=== PATIENT | female | born 1960 | race Caucasian/White ===

== ENCOUNTER 2020-04-04 10:38 | Emergency (ER) | payer MEDICAID, OTHER ==
[~2020-04-04] VITALS: Ht 167.6 cm; Wt 90.7 kg
[~2020-04-04 10:38] MED LIST: ACET-6134 PO; ETAN50SO SC
[2020-04-04 10:56] VITALS: BP 147/82
--- NOTE | 2020-04-04 11:01 | NUR ---
WAIT AT LOBBY. HANDED ON URINE CUP.
--- NOTE | 2020-04-04 11:16 | NUR ---
PT AMBULATED TO BED 07
--- NOTE | 2020-04-04 11:26 | NUR ---
DR MCKEON [facility]
[2020-04-04 11:48] LABS: BASOPHILS % (AUTO) 0.3 % (0.0-2.0); EOSINOPHILS # (AUTO) 0.1 K/uL (0-0.4); EOSINOPHILS % (AUTO) 1.1 % (0.0-4.0); HEMATOCRIT 39.9 % (36-48); HEMOGLOBIN 12.8 g/dL (12.0-16.0); LYMPHOCYTES # (AUTO) 1.5 K/uL (2.5-16.5); LYMPHOCYTES % (AUTO) 28.2 % (20.5-51.1); MEAN CORPUSCULAR HEMOGLOBIN 26 pg (27-31); MEAN CORPUSCULAR HGB CONC 32 g/dL (33-37); MEAN CORPUSCULAR VOLUME 81.7 fL (80-94); MONOCYTES # (AUTO) 0.5 K/uL (0.8-1.0); MONOCYTES % (AUTO) 9.2 % (1.7-9.3); NEUTROPHILS # (AUTO) 3.3 K/uL (1.8-7.7); NEUTROPHILS % (AUTO) 61.2 % (42.2-75.2); PLATELET COUNT (AUTO) 310 K/uL (140-450); RED BLOOD CELL COUNT(AUTO) 4.88 MIL/uL (4.20-5.40); RED CELL DISTRIBUTION WIDTH 14.6 % (11.6-13.7); WHITE BLOOD COUNT (AUTO) 5.4 K/uL (4.8-10.8)
--- NOTE | 2020-04-04 12:00 | NUR ---
REFERRED FROM CLINIC. C/O GENERALIZED ABDOMINAL PAIN X 2 WEEKS.PT AOX 4 , AFIBRILE , ROUND SOFT ABDOMEN , NONTENDER. DENIES N/V. MED HX: HTN, DEPRESSION
[2020-04-04 12:45] LABS: ANION GAP 12.5 (8-16); CARBON DIOXIDE 27.8 mmol/L (21-32); POTASSIUM 4.3 mmol/L (3.5-5.1)
[2020-04-04 12:46] LABS: CREATININE 0.8 mg/dL (0.6-1.3); TOTAL BILIRUBIN 0.4 mg/dL (0.0-1.0)
[2020-04-04 12:48] LABS: ALBUMIN 3.3 g/dL (3.4-5.0)
--- NOTE | 2020-04-04 13:12 | NUR ---
pt to ct scan via [facility].
--- NOTE | 2020-04-04 13:13 | NUR ---
pt back from ct scan via [facility].
[2020-04-04] MEDS ORDERED: MORPHINE SULFATE 4 MG/ML SYR IVP ONE (14:00)
[2020-04-04] MEDS ORDERED: ONDANSETRON 4 MG/2 ML VIAL IVP ONE (14:00)
[2020-04-04 14:45] VITALS: BP 147/82
--- NOTE | 2020-04-04 14:47 | NUR ---
Patient discharged with v/s stable. Written and verbal after care instructions given and explained regarding abdominal pain. Patient alert, oriented and verbalized understanding of instructions. Ambulatory with steady gait. All questions addressed prior to discharge. ID band removed. Patient advised to follow up with PMD. Rx of norco and zofra given. Patient educated on indication of medication including possible reaction and side effects. Opportunity to ask questions provided and answered.
== END 2020-04-04 14:47 | disposition home or self-care (01) ==
LOC: MED 10:38
DX: R10.9 Unspecified abdominal pain (principal); R11.10 Vomiting, unspecified; R19.7 Diarrhea, unspecified; Z79.899 Other long term (current) drug therapy; Z88.0 Allergy status to penicillin; Z88.8 Allergy status to other drugs, medicaments and biological substances
CPT/HCPCS: 36415; 74177; 80053; 81002; 83690; 85025; 96374; 96375; 99285; J2270; J2405; Q9967

== ENCOUNTER 2020-04-25 13:03 | Emergency (ER) | payer OTHER ==
[~2020-04-25] VITALS: Ht 167.6 cm; Wt 90.7 kg
[2020-04-25 13:09] VITALS: BP 139/77
[2020-04-25 15:28] LABS: BASOPHILS % (AUTO) 0.7 % (0.0-2.0); EOSINOPHILS # (AUTO) 0.1 K/uL (0-0.4); EOSINOPHILS % (AUTO) 0.8 % (0.0-4.0); HEMATOCRIT 40.3 % (36-48); HEMOGLOBIN 12.9 g/dL (12.0-16.0); LYMPHOCYTES # (AUTO) 1.8 K/uL (2.5-16.5); LYMPHOCYTES % (AUTO) 25.6 % (20.5-51.1); MEAN CORPUSCULAR HEMOGLOBIN 26 pg (27-31); MEAN CORPUSCULAR HGB CONC 32 g/dL (33-37); MEAN CORPUSCULAR VOLUME 80.9 fL (80-94); MONOCYTES # (AUTO) 0.5 K/uL (0.8-1.0); MONOCYTES % (AUTO) 6.9 % (1.7-9.3); NEUTROPHILS # (AUTO) 4.7 K/uL (1.8-7.7); PLATELET COUNT (AUTO) 337 K/uL (140-450); RED BLOOD CELL COUNT(AUTO) 4.98 MIL/uL (4.20-5.40); RED CELL DISTRIBUTION WIDTH 14.2 % (11.6-13.7); WHITE BLOOD COUNT (AUTO) 7.2 K/uL (4.8-10.8)
[2020-04-25 15:44] LABS: ALBUMIN 3.3 g/dL (3.4-5.0); ANION GAP 17.7 (8-16); CREATININE 0.8 mg/dL (0.6-1.3); POTASSIUM 3.7 mmol/L (3.5-5.1); TOTAL BILIRUBIN 0.5 mg/dL (0.0-1.0)
[2020-04-25 16:20] VITALS: BP 127/68
== END 2020-04-25 16:21 | disposition home or self-care (01) ==
LOC: MED 13:03
DX: M25.519 Pain in unspecified shoulder (principal); M54.6 Pain in thoracic spine; R07.9 Chest pain, unspecified; I10 Essential (primary) hypertension; F32.9 Major depressive disorder, single episode, unspecified; Z90.710 Acquired absence of both cervix and uterus; Z90.49 Acquired absence of other specified parts of digestive tract; Z98.890 Other specified postprocedural states; Z88.0 Allergy status to penicillin; Z88.8 Allergy status to other drugs, medicaments and biological substances
CPT/HCPCS: 36415; 71045; 80053; 84484; 85025; 99284; Q0092; 93005

== ENCOUNTER 2020-07-11 11:43 | Emergency (ER) | payer OTHER ==
[~2020-07-11] VITALS: Ht 167.6 cm; Wt 95.3 kg
[2020-07-11 11:46] VITALS: BP 116/71
--- NOTE | 2020-07-11 12:04 | NUR ---
59 Y/O FEMALE PT C/O PERIUMBILIBAL ABDOMINAL PAIN WITH NAUSEA AND DIAPHORESIS FOR ONE WEEK; WORSENING FOR THE PAST 3 DAYS. DENIES DIARRHEA OR BLOOD IN STOOL. NO VOMITING NOTED AT THIS TIME. ABD IS TENDER, NON DISTENDED AND SOFT. PMH: HTN MEDS: LOSARTAN, FLUOXETINE
[2020-07-11] MEDS ORDERED: MORPHINE SULFATE 4 MG/ML SYR IVP ONE (12:15)
[2020-07-11] MEDS ORDERED: ONDANSETRON 4 MG/2 ML VIAL ONE (12:27)
--- NOTE | 2020-07-11 12:33 | NUR ---
PT TAKEN TO CT VIA WHEELCHAIR
[2020-07-11] MEDS ORDERED: ONDANSETRON 4 MG/2 ML VIAL IVP ONE (12:35)
[2020-07-11 12:58] LABS: BASOPHILS % (AUTO) 0.5 % (0.0-2.0); EOSINOPHILS % (AUTO) 0.4 % (0.0-4.0); HEMATOCRIT 42.5 % (36-48); HEMOGLOBIN 13.9 g/dL (12.0-16.0); LYMPHOCYTES # (AUTO) 1.7 K/uL (2.5-16.5); LYMPHOCYTES % (AUTO) 24.8 % (20.5-51.1); MEAN CORPUSCULAR HEMOGLOBIN 26 pg (27-31); MEAN CORPUSCULAR HGB CONC 33 g/dL (33-37); MEAN CORPUSCULAR VOLUME 80.5 fL (80-94); MONOCYTES # (AUTO) 0.5 K/uL (0.8-1.0); MONOCYTES % (AUTO) 7.1 % (1.7-9.3); NEUTROPHILS # (AUTO) 4.6 K/uL (1.8-7.7); NEUTROPHILS % (AUTO) 67.2 % (42.2-75.2); PLATELET COUNT (AUTO) 335 K/uL (140-450); RED BLOOD CELL COUNT(AUTO) 5.28 MIL/uL (4.20-5.40); RED CELL DISTRIBUTION WIDTH 14.5 % (11.6-13.7); WHITE BLOOD COUNT (AUTO) 6.8 K/uL (4.8-10.8)
[2020-07-11 13:05] LABS: APPEARANCE,URINE HAZY (CLEAR); BILIRUBIN,URINE NEGATIVE (NEGATIVE); BLOOD, URINE NEGATIVE (NEGATIVE); COLOR,URINE YELLOW (YELLOW); LEUKOCYTE ESTERASE ,URINE NEGATIVE (NEGATIVE); NITRITE, URINE NEGATIVE (NEGATIVE); PH,URINE 8.5 (5.0-9.0); UGLUCOSE NEGATIVE (NEGATIVE)
[2020-07-11 13:18] LABS: ALBUMIN 3.9 g/dL (3.4-5.0); ANION GAP 14.2 (8-16); CARBON DIOXIDE 26.8 mmol/L (21-32); CREATININE 0.9 mg/dL (0.6-1.3); TOTAL BILIRUBIN 0.6 mg/dL (0.0-1.0)
[2020-07-11 14:18] VITALS: BP 121/78
--- NOTE | 2020-07-11 14:18 | NUR ---
Patient discharged with v/s stable. Written and verbal after care instructions given and explained. Patient alert, oriented and verbalized understanding of instructions. Ambulatory with steady gait. All questions addressed prior to discharge. ID band removed. Patient advised to follow up with PMD. Rx of Bentyl and Flexeril given. Patient educated on indication of medication including possible reaction and side effects. Opportunity to ask questions provided and answered.
== END 2020-07-11 14:18 | disposition home or self-care (01) ==
LOC: MED 11:43
DX: R10.9 Unspecified abdominal pain (principal); I10 Essential (primary) hypertension; Z88.0 Allergy status to penicillin; Z88.6 Allergy status to analgesic agent; Z79.899 Other long term (current) drug therapy
CPT/HCPCS: 36415; 74176; 80053; 81003; 83690; 85025; 96374; 96375; 99284; J2270; J2405

== ENCOUNTER 2020-10-16 16:37 | Emergency (ER) | payer OTHER ==
[~2020-10-16] VITALS: Ht 167.6 cm; Wt 85.7 kg
[2020-10-16 16:51] VITALS: BP 141/79
[2020-10-16] MEDS ORDERED: CLOPIDOGREL 75 MG TAB PO ONE (17:00)
[2020-10-16] MEDS ORDERED: NACL 0.9% 500 ML IV ONE (17:00)
[2020-10-16] MEDS ORDERED: MORPHINE SULFATE 2 MG/ML SYR IVP ONE (17:00)
[2020-10-16] MEDS ORDERED: ONDANSETRON 4 MG/2 ML VIAL ONE (17:18)
[2020-10-16 17:22] LABS: BASOPHILS % (AUTO) 0.4 % (0.0-2.0); EOSINOPHILS % (AUTO) 0.2 % (0.0-4.0); HEMATOCRIT 38.5 % (36-48); HEMOGLOBIN 12.5 g/dL (12.0-16.0); LYMPHOCYTES # (AUTO) 0.8 K/uL (2.5-16.5); MEAN CORPUSCULAR HEMOGLOBIN 26 pg (27-31); MEAN CORPUSCULAR HGB CONC 33 g/dL (33-37); MONOCYTES # (AUTO) 0.3 K/uL (0.8-1.0); MONOCYTES % (AUTO) 3.6 % (1.7-9.3); NEUTROPHILS % (AUTO) 86.8 % (42.2-75.2); PLATELET COUNT (AUTO) 329 K/uL (140-450); RED BLOOD CELL COUNT(AUTO) 4.87 MIL/uL (4.20-5.40); RED CELL DISTRIBUTION WIDTH 14.2 % (11.6-13.7); WHITE BLOOD COUNT (AUTO) 9.2 K/uL (4.8-10.8)
[2020-10-16] MEDS ORDERED: ONDANSETRON 4 MG/2 ML VIAL IVP ONE (17:30)
[2020-10-16 17:39] LABS: ALBUMIN 3.4 g/dL (3.4-5.0); ANION GAP 12.2 (8-16); CARBON DIOXIDE 27.5 mmol/L (21-32); CREATININE 0.9 mg/dL (0.6-1.3); POTASSIUM 3.7 mmol/L (3.5-5.1); TOTAL BILIRUBIN 0.4 mg/dL (0.0-1.0)
[2020-10-16 18:30] VITALS: BP 142/57
--- NOTE | 2020-10-16 18:47 | NUR ---
Patient discharged with v/s stable. Written and verbal after care instructions given and explained. Patient alert, oriented and verbalized understanding of instructions. Ambulatory with steady gait. All questions addressed prior to discharge. ID band removed. Patient advised to follow up with PMD. New Rx given. Patient educated on indication of medication including possible reaction and side effects. Opportunity to ask questions provided and answered. IV REMOVED BEFORE DISCHARGE. PT IN AGREEMENT WITH PLAN OF CARE.
== END 2020-10-16 18:34 | disposition home or self-care (01) ==
LOC: MED 16:37
DX: R07.89 Other chest pain (principal); J45.909 Unspecified asthma, uncomplicated; I10 Essential (primary) hypertension; Z88.0 Allergy status to penicillin; Z79.899 Other long term (current) drug therapy
CPT/HCPCS: 36415; 71045; 80053; 84484; 85025; 93005; 96374; 96375; 99285; J2270; J2405; J7030

== ENCOUNTER 2020-12-26 08:32 | Emergency (ER) | payer OTHER ==
[~2020-12-26] VITALS: Ht 167.6 cm; Wt 90.7 kg
[2020-12-26 08:39] VITALS: BP 109/69
--- NOTE | 2020-12-26 08:43 | NUR ---
Patient ambulated to bed 7. RN evaluating the patient at bedside.
--- NOTE | 2020-12-26 08:50 | NUR ---
Dr. Benites is evaluating patient at bedside.
--- NOTE | 2020-12-26 08:55 | NUR ---
Note undone in EDM - 12/26/20 at 0903 by [facility] 60 y/o F coming in from home with c/c chest pain. Patient also states swelling to bilateral upper and lower extremity and left hand. Patient states chest pain 10/10, sharp/intermittent, non-radiating. Patient ofelia fever, chills, N/V. Patient states shortness of breath. female with pain in arms and legs for two days. Pt reports chest pain. Pt describes sharp intermittent 10/10 in bilateral arms and legs and her chest. Pt took Tylenol without improvement in pain. Pt denies fever, chills, nausea or vomiting. Pt with SOB. Pt without cough. Pt reports swelling in arms and legs. EKG performed at bedside showing Sinus tachycardia @ HR 109; Dr. Benites made aware of results. shelter monitor in place. Respirations even/unlabored. Bed locked in lowest position, side rails x 1, call light in reach. PMH: Asthma, HTN Meds: Albuterol, Nitrostat Sx: Hysterectomy, hernia repair
--- NOTE | 2020-12-26 08:55 | NUR ---
60 y/o F coming in from home with c/c chest pain. Patient also states swelling to bilateral upper and lower extremity and left hand. Patient states chest pain 10/10, sharp/intermittent, non-radiating. Patient states associated shortness of breath. Patient states she took Tylenol with no relief to pain. EKG performed at bedside showing Sinus tachycardia @ HR 109; Dr. Benites made aware of results. monitoring and evaluation advisor in place. Respirations even/unlabored. Bed locked in lowest position, side rails x 1, call light in reach. PMH: Asthma, HTN Meds: Albuterol, Nitrostat Sx: Hysterectomy, hernia repair Addendum: 12/26/20 at 0909 by [facility] 60 y/o F coming in from home with c/c chest pain. Patient also states swelling to bilateral upper and lower extremity and left hand. Patient states chest pain 10/10, sharp/intermittent, non-radiating. Patient states associated shortness of breath. Patient states she took Tylenol with no relief to pain. Patient denies N/V/D, fever, chills, cough, fever, headache, dizziness, chills. EKG performed at bedside showing Sinus tachycardia @ HR 109; Dr. Benites made aware of results. monitoring and evaluation advisor in place. Respirations tachypneic at 29. Bed locked in lowest position, side rails x 1, call light in reach. PMH: Asthma, HTN Meds: Albuterol, Nitrostat Sx: Hysterectomy, hernia repair
[2020-12-26] MEDS ORDERED: MORPHINE SULFATE 4 MG/ML SYR IM ONE (09:00)
[2020-12-26] MEDS ORDERED: ONDANSETRON 4 MG ODT PO ONE (09:15)
--- NOTE | 2020-12-26 09:35 | NUR ---
Dr. Benites is reevaluating the patient at bedside.
[2020-12-26] MEDS ORDERED: ACET-8386 PO (09:54)
[2020-12-26] MEDS ORDERED: ONDA8TAB87 PO (09:54)
[2020-12-26 10:02] VITALS: BP 120/73
--- NOTE | 2020-12-26 10:02 | NUR ---
Patient discharged with v/s stable. Written and verbal after care instructions given and explained. Patient alert, oriented and verbalized understanding of instructions. Ambulatory with steady gait. All questions addressed prior to discharge. ID band removed. Patient advised to follow up with PMD. Rx of Hydrocodone/Acetaminophen, Ondansetron Hcl given. Patient educated on indication of medication including possible reaction and side effects. Opportunity to ask questions provided and answered.
== END 2020-12-26 10:02 | disposition home or self-care (01) ==
LOC: MED 08:32
DX: R07.89 Other chest pain (principal); M79.601 Pain in right arm; M79.602 Pain in left arm; M79.604 Pain in right leg; M79.605 Pain in left leg; J45.909 Unspecified asthma, uncomplicated; I10 Essential (primary) hypertension; Z79.899 Other long term (current) drug therapy; Z98.890 Other specified postprocedural states; Z90.710 Acquired absence of both cervix and uterus; Z88.0 Allergy status to penicillin; Z88.6 Allergy status to analgesic agent
CPT/HCPCS: 93005; 96372; 99283; J2270; Q0162

== ENCOUNTER 2021-03-06 23:02 | Emergency (ER) | payer OTHER ==
[~2021-03-06] VITALS: Ht 165.1 cm; Wt 93.9 kg
[~2021-03-06 23:02] MED LIST changes: +ACET-10509 PO; -ACET-6134 PO; +ACET-8386 PO; +ONDA8TAB87 PO
[2021-03-06 23:06] VITALS: BP 138/82
--- NOTE | 2021-03-06 23:13 | NUR ---
PT TAKEN TO BED 5
--- NOTE | 2021-03-06 23:42 | NUR ---
Dr. Sanchez examining patient.
[2021-03-06] MEDS ORDERED: NACL 0.9% 1,000 ML IV ONE (23:45)
[2021-03-06] MEDS ORDERED: KETOROLAC 30 MG/ML VIAL IVP ONE (23:45)
--- NOTE | 2021-03-06 23:48 | NUR ---
Urine sample collected and handed to Maggie from lab.
[2021-03-07 00:06] LABS: APPEARANCE,URINE CLEAR (CLEAR); BILIRUBIN,URINE 1+ (NEGATIVE); BLOOD, URINE TRACE-I (NEGATIVE); COLOR,URINE YELLOW (YELLOW); LEUKOCYTE ESTERASE ,URINE NEGATIVE (NEGATIVE); NITRITE, URINE NEGATIVE (NEGATIVE); PH,URINE 6.5 (5.0-9.0); UGLUCOSE NEGATIVE (NEGATIVE)
[2021-03-07 00:16] LABS: WBC,URINE 0-5 /HPF (0-5)
[2021-03-07 00:28] LABS: BASOPHILS # (AUTO) 0.1 K/uL (0.00-0.22); BASOPHILS % (AUTO) 0.4 % (0.0-2.0); CARBON DIOXIDE 25.1 mmol/L (21-32); CREATININE 0.9 mg/dL (0.6-1.3); EOSINOPHILS # (AUTO) 0.1 K/uL (0-0.4); EOSINOPHILS % (AUTO) 0.5 % (0.0-4.0); HEMATOCRIT 39.1 % (36-48); HEMOGLOBIN 12.8 g/dL (12.0-16.0); LYMPHOCYTES # (AUTO) 1.6 K/uL (2.5-16.5); LYMPHOCYTES % (AUTO) 9.9 % (20.5-51.1); MEAN CORPUSCULAR HEMOGLOBIN 26 pg (27-31); MEAN CORPUSCULAR HGB CONC 33 g/dL (33-37); MONOCYTES # (AUTO) 0.6 K/uL (0.8-1.0); MONOCYTES % (AUTO) 3.5 % (1.7-9.3); NEUTROPHILS # (AUTO) 14.1 K/uL (1.8-7.7); NEUTROPHILS % (AUTO) 85.7 % (42.2-75.2); PLATELET COUNT (AUTO) 362 K/uL (140-450); POTASSIUM 4.1 mmol/L (3.5-5.1); RED BLOOD CELL COUNT(AUTO) 5.02 MIL/uL (4.20-5.40); RED CELL DISTRIBUTION WIDTH 15.1 % (11.6-13.7); WHITE BLOOD COUNT (AUTO) 16.5 K/uL (4.8-10.8)
[2021-03-07 00:35] LABS: ALBUMIN 3.3 g/dL (3.4-5.0); TOTAL BILIRUBIN 0.7 mg/dL (0.0-1.0)
[2021-03-07] MEDS ORDERED: FAMOTIDINE 20 MG/2 ML VIAL IVP ONE (01:40)
[2021-03-07 03:09] VITALS: BP 139/71
[2021-03-07] MEDS ORDERED: FAMO-90 PO (03:50)
--- NOTE | 2021-03-07 05:17 | NUR ---
See patient's paper chart for D/C information.
== END 2021-03-07 04:03 | disposition home or self-care (01) ==
LOC: MED 23:02
DX: K29.70 Gastritis, unspecified, without bleeding (principal); J45.909 Unspecified asthma, uncomplicated; I10 Essential (primary) hypertension; Z88.0 Allergy status to penicillin; Z88.6 Allergy status to analgesic agent; Z90.49 Acquired absence of other specified parts of digestive tract; Z98.890 Other specified postprocedural states; Z79.899 Other long term (current) drug therapy
CPT/HCPCS: 36415; 74176; 80053; 81001; 85025; 87086; 96361; 96374; 96375; 99284; J1885; J3490; J7030

== ENCOUNTER 2021-07-04 06:40 | Day surgery (SDC) | payer OTHER, SELFPAY ==
[~2021-07-04] VITALS: Ht 167.6 cm; Wt 81.6 kg
[~2021-07-04 06:40] MED LIST changes: +FAMO-90 PO
[2021-07-04] MEDS ORDERED: MIDAZOLAM 5 MG/5 ML VIAL ONE (08:03)
[2021-07-04] MEDS ORDERED: fentaNYL citrate 0.05 MG/ML VIAL ONE (08:03)
[2021-07-04] MEDS ORDERED: diphenhydrAMINE 50 MG/ML VIAL ONE (08:03)
[2021-07-04] MEDS ORDERED: LIDOCAINE 2% 100 MG/5 ML UJET TP ONE (08:04)
[2021-07-04] MEDS ORDERED: MIDAZOLAM 2 MG/2 ML VIAL IVP ONE (14:10)
[2021-07-04] MEDS ORDERED: fentaNYL citrate 0.05 MG/ML VIAL IVP ONE (14:10)
== END 2021-07-04 09:27 | disposition home or self-care (01) ==
LOC: MMU 06:40 → MDS 06:40
PROVIDERS: ATTEND Internal Medicine Gastroenterology
DX: K62.5 Hemorrhage of anus and rectum (principal); K57.30 Diverticulosis of large intestine without perforation or abscess without bleeding; K59.00 Constipation, unspecified; I10 Essential (primary) hypertension; Z88.0 Allergy status to penicillin; Z79.82 Long term (current) use of aspirin; Z79.899 Other long term (current) drug therapy; Z90.49 Acquired absence of other specified parts of digestive tract; Z20.822 Contact with and (suspected) exposure to COVID-19
CPT/HCPCS: 45378; 87426; J2250; J3010; J1200

== ENCOUNTER 2022-01-14 10:23 | Emergency (ER) | payer OTHER ==
[~2022-01-14] VITALS: Ht 167.6 cm; Wt 87.1 kg
[2022-01-14 10:31] VITALS: BP 145/93
--- NOTE | 2022-01-14 11:00 | NUR ---
61 Y/O FEMALE BIB SELF C/P R/L KNEE PAIN X 4 DAYS. PAIN CURRENTLY IS CONSTANT RATED 6/10. PAIN IS NON-RADIATING. PT DENIES STRAUMA. PT DENIES ALLEVIATING FACTORS. PT DENIES CHEST PAIN, SOB, FEVER, CHILLS. PT DENIES N/V/D. PT IS ALERT AND ORIENTED X 4. BED IN LOWET POSITION. BED RAIL X1. PMH: ASTHMA, HLD, HTN ALLERGY: PENICILLIN MED: IBUPROFEN
[2022-01-14] MEDS ORDERED: KETOROLAC 30 MG/ML VIAL IM ONE (11:50)
--- NOTE | 2022-01-14 11:57 | NUR ---
US AT PT BEDSIDE
--- NOTE | 2022-01-14 12:48 | NUR ---
RAD AT BEDSIDE
[2022-01-14] MEDS ORDERED: NAPR-54 PO (13:51)
[2022-01-14 14:25] VITALS: BP 145/93
== END 2022-01-14 14:25 | disposition home or self-care (01) ==
LOC: MED 10:23
DX: M25.561 Pain in right knee (principal); M25.562 Pain in left knee; J45.909 Unspecified asthma, uncomplicated; I10 Essential (primary) hypertension; E78.5 Hyperlipidemia, unspecified; Z79.899 Other long term (current) drug therapy; Z90.49 Acquired absence of other specified parts of digestive tract; Z98.890 Other specified postprocedural states; Z88.0 Allergy status to penicillin
CPT/HCPCS: 73560; 73562; 93971; 96372; 99284; J1885; Q0092

== ENCOUNTER 2022-02-19 08:22 | Observation (INO) | payer OTHER ==
[~2022-02-19] VITALS: Ht 167.6 cm; Wt 85.9 kg
[~2022-02-19 08:22] MED LIST changes: +NAPR-54 PO
[2022-02-19 08:26] VITALS: BP 106/70
[2022-02-19] MEDS ORDERED: KETOROLAC 30 MG/ML VIAL IVP ONE (09:00)
[2022-02-19] MEDS ORDERED: ONDANSETRON 4 MG/2 ML VIAL IVP ONE (09:05)
[2022-02-19] MEDS ORDERED: ONDANSETRON 4 MG/2 ML VIAL ONE (09:06)
[2022-02-19 09:08] LABS: BASOPHILS # (AUTO) 0.1 K/uL (0.00-0.22); BASOPHILS % (AUTO) 0.6 % (0.0-2.0); EOSINOPHILS % (AUTO) 0.1 % (0.0-4.0); HEMATOCRIT 36.8 % (36-48); LYMPHOCYTES # (AUTO) 1.6 K/uL (2.5-16.5); LYMPHOCYTES % (AUTO) 19.1 % (20.5-51.1); MEAN CORPUSCULAR HEMOGLOBIN 25 pg (27-31); MEAN CORPUSCULAR HGB CONC 33 g/dL (33-37); MEAN CORPUSCULAR VOLUME 75.6 fL (80-94); MONOCYTES # (AUTO) 0.7 K/uL (0.8-1.0); MONOCYTES % (AUTO) 7.9 % (1.7-9.3); NEUTROPHILS # (AUTO) 6.2 K/uL (1.8-7.7); NEUTROPHILS % (AUTO) 72.3 % (42.2-75.2); PLATELET COUNT (AUTO) 327 K/uL (140-450); RED BLOOD CELL COUNT(AUTO) 4.87 MIL/uL (4.20-5.40); RED CELL DISTRIBUTION WIDTH 15.3 % (11.6-13.7); WHITE BLOOD COUNT (AUTO) 8.6 K/uL (4.8-10.8)
[2022-02-19 09:26] LABS: ALBUMIN 3.2 g/dL (3.4-5.0); CARBON DIOXIDE 24.8 mmol/L (21-32); CREATININE 0.9 mg/dL (0.6-1.3); POTASSIUM 3.8 mmol/L (3.5-5.1); TOTAL BILIRUBIN 0.8 mg/dL (0.0-1.0)
[2022-02-19] MEDS ORDERED: ALBU0.0912 INH (10:28)
[2022-02-19] MEDS ORDERED: FLUO10TA4 PO (10:28)
[2022-02-19] MEDS ORDERED: [UNRECOGNIZED DRUG - CODE] SL (10:28)
[2022-02-19 13:11] VITALS: BP 136/58
[2022-02-19 17:35] VITALS: BP 126/66
[2022-02-19 20:00] VITALS: BP 130/64
[2022-02-19] MEDS: MORPHINE SULFATE 2 MG/ML SYR IVP PRN (21:25)
[2022-02-19] MEDS: ONDANSETRON 4 MG/2 ML VIAL IVP PRN (21:33)
[2022-02-20] VITALS: BP 118/61
[2022-02-20] MEDS: ACETAMINOPHEN 325 MG TAB PO PRN ×2 (00:24→15:48)
[2022-02-20 04:00] VITALS: BP 134/71
[2022-02-20 07:12] LABS: BASOPHILS % (AUTO) 0.4 % (0.0-2.0); EOSINOPHILS # (AUTO) 0.1 K/uL (0-0.4); EOSINOPHILS % (AUTO) 1.1 % (0.0-4.0); HEMATOCRIT 34.8 % (36-48); HEMOGLOBIN 11.4 g/dL (12.0-16.0); LYMPHOCYTES # (AUTO) 2.2 K/uL (2.5-16.5); LYMPHOCYTES % (AUTO) 28.5 % (20.5-51.1); MEAN CORPUSCULAR HEMOGLOBIN 25 pg (27-31); MEAN CORPUSCULAR HGB CONC 33 g/dL (33-37); MEAN CORPUSCULAR VOLUME 75.6 fL (80-94); MONOCYTES # (AUTO) 0.8 K/uL (0.8-1.0); MONOCYTES % (AUTO) 10.3 % (1.7-9.3); NEUTROPHILS # (AUTO) 4.6 K/uL (1.8-7.7); NEUTROPHILS % (AUTO) 59.7 % (42.2-75.2); PLATELET COUNT (AUTO) 307 K/uL (140-450); RED BLOOD CELL COUNT(AUTO) 4.61 MIL/uL (4.20-5.40); RED CELL DISTRIBUTION WIDTH 15.1 % (11.6-13.7); WHITE BLOOD COUNT (AUTO) 7.7 K/uL (4.8-10.8)
[2022-02-20 07:17] LABS: ALBUMIN 2.8 g/dL (3.4-5.0); CARBON DIOXIDE 30.3 mmol/L (21-32); CREATININE 0.8 mg/dL (0.6-1.3); MAGNESIUM 2.2 mg/dL (1.8-2.4); PHOSPHORUS 3.8 mg/dL (2.5-4.9); POTASSIUM 4.3 mmol/L (3.5-5.1); TOTAL BILIRUBIN 0.5 mg/dL (0.0-1.0)
[2022-02-20 08:00] VITALS: BP 117/68
[2022-02-20] MEDS: ONDANSETRON 4 MG/2 ML VIAL IVP PRN (10:03)
[2022-02-20] MEDS: MORPHINE SULFATE 2 MG/ML SYR IVP PRN (10:04)
[2022-02-20] MEDS ORDERED: [UNRECOGNIZED DRUG - CODE] PO (11:18)
[2022-02-20] MEDS ORDERED: MONT10TA35 PO (11:21)
[2022-02-20] MEDS ORDERED: ATOR20TA PO (11:21)
[2022-02-20] MEDS ORDERED: PRIM250T70 PO (11:21)
[2022-02-20] MEDS ORDERED: DIPH50CA69 PO (11:33)
[2022-02-20 12:00] VITALS: BP 133/76
[2022-02-20] MEDS ORDERED: NAPROXEN 500 MG TAB PO PRN (12:15)
[2022-02-20 15:29] VITALS: BP 133/76
[2022-02-20] MEDS ORDERED: PRIMIDONE 50 MG TAB PO SCH (21:00)
[2022-02-20] MEDS ORDERED: PRIMIDONE 50 MG PO SCH (21:00)
[2022-02-21] MEDS ORDERED: MONTELUKAST SODIUM 10 MG TAB PO SCH (09:00)
[2022-02-21] MEDS ORDERED: DILTIAZEM 300 MG PO SCH (09:00)
[2022-02-21] MEDS ORDERED: DILTIAZEM HCL PO SCH (09:00)
[2022-02-21] MEDS ORDERED: FAMOTIDINE 20 MG TAB PO SCH (09:00)
[2022-02-21] MEDS ORDERED: ATORVASTATIN 20 MG TAB PO SCH (09:00)
== END 2022-02-20 16:35 | disposition home or self-care (01) ==
LOC: MED 08:22 → MMU 12:08 → MTU 12:34
PROVIDERS: ADMIT Hospitalist; ATTEND Hospitalist
DX: R07.89 Other chest pain (principal); Z20.822 Contact with and (suspected) exposure to COVID-19; I10 Essential (primary) hypertension; E78.5 Hyperlipidemia, unspecified; J45.909 Unspecified asthma, uncomplicated; Z88.0 Allergy status to penicillin; Z79.899 Other long term (current) drug therapy; Z90.710 Acquired absence of both cervix and uterus
CPT/HCPCS: 36415; 71045; 80053; 83735; 83880; 84100; 84484; 85025; 87426; 93005; 96374; 96375; 96376; 99285; C8929; G0378; J1885; J2270; J2405

== ENCOUNTER 2022-03-06 08:02 | Day surgery (SDC) | payer OTHER ==
[~2022-03-06] VITALS: Ht 152.4 cm; Wt 81.6 kg
[~2022-03-06 08:02] MED LIST changes: +ALBU0.0912 INH; +ATOR20TA PO; +DIPH50CA69 PO; +MONT10TA35 PO; +PRIM250T70 PO; +[UNRECOGNIZED DRUG - CODE] PO; +[UNRECOGNIZED DRUG - CODE] SL
[2022-03-06] MEDS ORDERED: diphenhydrAMINE 50 MG/ML VIAL ONE (09:21)
[2022-03-06] MEDS ORDERED: MIDAZOLAM 5 MG/5 ML VIAL ONE (09:21)
[2022-03-06] MEDS ORDERED: fentaNYL citrate 0.05 MG/ML VIAL ONE (09:21)
[2022-03-06] MEDS ORDERED: LIDOCAINE 2% 100 MG/5 ML UJET TP ONE ×2 (09:22→09:30)
[2022-03-06] MEDS ORDERED: MIDAZOLAM 2 MG/2 ML VIAL IVP ONE (15:15)
[2022-03-06] MEDS ORDERED: diphenhydrAMINE 50 MG/ML VIAL IVP ONE (15:15)
[2022-03-06] MEDS ORDERED: fentaNYL citrate 0.05 MG/ML VIAL IVP ONE (15:15)
== END 2022-03-06 12:02 | disposition home or self-care (01) ==
LOC: MOR 08:02 → MMU 08:03 → MOR 12:02
PROVIDERS: ATTEND Internal Medicine Gastroenterology
DX: Z09 Encounter for follow-up examination after completed treatment for conditions other than malignant neoplasm (principal); K57.30 Diverticulosis of large intestine without perforation or abscess without bleeding; K21.9 Gastro-esophageal reflux disease without esophagitis; K59.00 Constipation, unspecified; E78.5 Hyperlipidemia, unspecified; J45.909 Unspecified asthma, uncomplicated; Z86.010 Personal history of colon polyps; Z90.710 Acquired absence of both cervix and uterus; Z90.49 Acquired absence of other specified parts of digestive tract; Z88.0 Allergy status to penicillin; Z79.82 Long term (current) use of aspirin; Z79.899 Other long term (current) drug therapy; Z20.822 Contact with and (suspected) exposure to COVID-19
CPT/HCPCS: 45378; 87426; J1200; J2250; J3010

== ENCOUNTER 2022-05-01 06:34 | Day surgery (SDC) | payer OTHER ==
[~2022-05-01] VITALS: Ht 167.6 cm; Wt 81.6 kg
[~2022-05-01 06:34] MED LIST changes: -ETAN50SO SC; +ETAN50SY SC
[2022-05-01] MEDS ORDERED: fentaNYL citrate 0.05 MG/ML VIAL ONE (07:31)
[2022-05-01] MEDS ORDERED: MIDAZOLAM 5 MG/5 ML VIAL ONE (07:31)
[2022-05-01] MEDS ORDERED: diphenhydrAMINE 50 MG/ML VIAL ONE (07:31)
[2022-05-01] MEDS ORDERED: MIDAZOLAM 2 MG/2 ML VIAL IVP ONE (12:30)
[2022-05-01] MEDS ORDERED: fentaNYL citrate 0.05 MG/ML VIAL IVP ONE (12:30)
== END 2022-05-01 09:25 | disposition home or self-care (01) ==
LOC: MDS 06:34 → MMU 06:36 → MDS 09:25
PROVIDERS: ATTEND Internal Medicine Gastroenterology
DX: R10.13 Epigastric pain (principal); K29.50 Unspecified chronic gastritis without bleeding; K31.7 Polyp of stomach and duodenum; J45.909 Unspecified asthma, uncomplicated; I10 Essential (primary) hypertension; Z86.010 Personal history of colon polyps; Z20.822 Contact with and (suspected) exposure to COVID-19; Z88.0 Allergy status to penicillin; Z79.82 Long term (current) use of aspirin; Z79.899 Other long term (current) drug therapy; Z79.1 Long term (current) use of non-steroidal anti-inflammatories (NSAID); Z90.49 Acquired absence of other specified parts of digestive tract
CPT/HCPCS: 43239; 43251; 87426; 88305; 88312; 88313; 88342; J2250; J3010; J1200

== ENCOUNTER 2022-06-13 14:21 | Emergency (ER) | payer OTHER ==
[~2022-06-13] VITALS: Ht 167.6 cm; Wt 90.7 kg
[2022-06-13 14:40] VITALS: BP 127/52
--- NOTE | 2022-06-13 14:45 | NUR ---
PT AMB TO BED 9.
[2022-06-13] MEDS ORDERED: TETRACAINE HCL/PF 0.5% OPTH 4 ML BTL OP ONE (15:00)
[2022-06-13] MEDS ORDERED: FLUORESCEIN OPTH STRIP 1 MG OP ONE (15:00)
--- NOTE | 2022-06-13 15:19 | NUR ---
61 y/o female, referred from urgent care, pt is c/o left conjectival infection with bl eye pain for 3 days. pt denies any trauma to face or eyes. skin is pink/warm/dry. a&o x4, [place] speaking, with even and steady gait. lungs clear bl, heart rate even and regular. pt denies any fever, cp, sob, or cough at this time. pt states pain is 9/10 at this time. patient positioned for comfort. hob elevated. bed down. ermd made aware of pt. pmh: prediabetes, htn allergy: penicillin
[2022-06-13] MEDS ORDERED: TOMOMETER 1 DEV DEV MC ONE (15:25)
[2022-06-13] MEDS ORDERED: ERYT5OIN51 OP (15:34)
[2022-06-13 17:06] VITALS: BP 127/52
--- NOTE | 2022-06-13 17:07 | NUR ---
copy of work note and urgent care slip given
--- NOTE | 2022-06-13 17:07 | NUR ---
Patient discharged with v/s stable. Written and verbal after care instructions given and explained. Patient alert, oriented and verbalized understanding of instructions. Ambulatory with steady gait. All questions addressed prior to discharge. ID band removed. Patient advised to follow up with PMD. Rx of erythromycin base (script) given. Patient educated on indication of medication including possible reaction and side effects. Opportunity to ask questions provided and answered.
== END 2022-06-13 17:07 | disposition home or self-care (01) ==
LOC: MED 14:21
DX: H10.89 Other conjunctivitis (principal); B96.89 Other specified bacterial agents as the cause of diseases classified elsewhere; H53.8 Other visual disturbances; J45.909 Unspecified asthma, uncomplicated; I10 Essential (primary) hypertension; Z98.49 Cataract extraction status, unspecified eye; Z79.2 Long term (current) use of antibiotics; Z88.0 Allergy status to penicillin
CPT/HCPCS: 99283

== ENCOUNTER 2022-10-21 10:03 | Emergency (ER) | payer OTHER ==
[~2022-10-21] VITALS: Ht 167.6 cm; Wt 91.2 kg
[~2022-10-21 10:03] MED LIST changes: -ACET-10509 PO; -ACET-8386 PO; -ALBU0.0912 INH; -ATOR20TA PO; -DIPH50CA69 PO; +ERYT5OIN51 OP; -ETAN50SY SC; -FAMO-90 PO; -MONT10TA35 PO; -NAPR-54 PO; -ONDA8TAB87 PO; -PRIM250T70 PO; -[UNRECOGNIZED DRUG - CODE] PO; -[UNRECOGNIZED DRUG - CODE] SL
[2022-10-21 10:10] VITALS: BP 116/68
[2022-10-21] MEDS ORDERED: KETOROLAC 30 MG/ML VIAL IM ONE (11:05)
[2022-10-21] MEDS ORDERED: IBUP-2213 PO (11:27)
[2022-10-21] MEDS ORDERED: LID5T TP (11:27)
[2022-10-21] MEDS ORDERED: CYCL-711 PO (11:27)
--- NOTE | 2022-10-21 11:42 | NUR ---
URINE WALKED TO LAB AND HANDED TO BECCA CHEUNG TECH
--- NOTE | 2022-10-21 11:42 | NUR ---
62 Y/O FEMALE BIB SELF C/O UPPER BACK PAIN X3 DAYS, DENIES ANY TRAUMA/INJURY. ALLERGY: PCN PMH: ASTHMA, HTN, HDL
[2022-10-21 11:43] VITALS: BP 116/68
--- NOTE | 2022-10-21 11:43 | NUR ---
Patient discharged with v/s stable. Written and verbal after care instructions given and explained. Patient alert, oriented and verbalized understanding of instructions. Ambulatory with steady gait. All questions addressed prior to discharge. ID band removed. Patient advised to follow up with PMD. Rx of IBUPROFEN, LIDOCAINE, CYCLOBENZAPRINE (SENT) given. Patient educated on indication of medication including possible reaction and side effects. Opportunity to ask questions provided and answered.
[2022-10-21 12:11] LABS: APPEARANCE,URINE CLEAR (CLEAR); BILIRUBIN,URINE NEGATIVE (NEGATIVE); BLOOD, URINE NEGATIVE (NEGATIVE); COLOR,URINE YELLOW (YELLOW); LEUKOCYTE ESTERASE ,URINE NEGATIVE (NEGATIVE); NITRITE, URINE NEGATIVE (NEGATIVE); PH,URINE 6.5 (5.0-9.0); UGLUCOSE NEGATIVE (NEGATIVE)
== END 2022-10-21 11:43 | disposition home or self-care (01) ==
LOC: MED 10:03
DX: S39.012A Strain of muscle, fascia and tendon of lower back, initial encounter (principal); J45.909 Unspecified asthma, uncomplicated; E11.9 Type 2 diabetes mellitus without complications; I10 Essential (primary) hypertension; E78.5 Hyperlipidemia, unspecified; Z79.899 Other long term (current) drug therapy; Z88.0 Allergy status to penicillin; X58.XXXA Exposure to other specified factors, initial encounter; Y93.89 Activity, other specified; Y92.89 Other specified places as the place of occurrence of the external cause; Y99.8 Other external cause status
CPT/HCPCS: 81003; 96372; 99283; J1885

== ENCOUNTER 2022-11-19 10:54 | Emergency (ER) | payer OTHER ==
[~2022-11-19] VITALS: Ht 167.6 cm; Wt 91.8 kg
[~2022-11-19 10:54] MED LIST changes: +CYCL-711 PO; +IBUP-2213 PO; +LID5T TP
[2022-11-19 10:59] VITALS: BP 132/63
--- NOTE | 2022-11-19 11:04 | NUR ---
PT AMB TO BED 6.
--- NOTE | 2022-11-19 11:15 | NUR ---
62YO FEMALE PT C/O INCREASED SHARP CHEST PAIN AND SOB X3DAYS. RADIATION TO RL BACK W/ PAIN AT MOST ON COUGH. REPORTS INITIAL ONSET X1WEEK. S/S TO PREVIOUS ASTHMA EXACERBATION EPISODES. STATES MILD RELIEF AFTER NITRO X1. DENIES N/V/D. PT AAOX4, ON IMMUNOCHEMIST. BED AT LOWEST POSITION. BED RAILS UPX2 HX: ASTHMA, HTN, PRE-DIABETES, PRE-HLD ALLERGIES: PENICILLINS
--- NOTE | 2022-11-19 11:18 | NUR ---
MD AGUILERA [facility] FOR EVALUATION
[2022-11-19] MEDS ORDERED: predniSONE 20 MG TAB PO ONE (11:20)
[2022-11-19] MEDS ORDERED: IPRATROPIUM 0.02% 0.5 MG/2.5 ML NEBU INH ONE (11:20)
[2022-11-19] MEDS ORDERED: ALBUTEROL 0.083% 2.5 MG/3 ML NEBU INH ONE (11:20)
--- NOTE | 2022-11-19 11:30 | NUR ---
RT AT BEDSIDE
[2022-11-19] MEDS ORDERED: KETOROLAC 60 MG/2 ML VIAL IM ONE (12:15)
[2022-11-19] MEDS ORDERED: ALBU0.0912 IH (12:52)
[2022-11-19] MEDS ORDERED: PRED20TA5 PO (12:52)
[2022-11-19] MEDS ORDERED: FLUT1BLS15 IH (12:52)
[2022-11-19 13:10] VITALS: BP 127/75
== END 2022-11-19 13:06 | disposition home or self-care (01) ==
LOC: MED 10:54
DX: J45.901 Unspecified asthma with (acute) exacerbation (principal); Z20.822 Contact with and (suspected) exposure to COVID-19; R07.89 Other chest pain; I10 Essential (primary) hypertension; Z88.0 Allergy status to penicillin; Z79.899 Other long term (current) drug therapy; Z90.49 Acquired absence of other specified parts of digestive tract; Z90.710 Acquired absence of both cervix and uterus; Z98.890 Other specified postprocedural states
CPT/HCPCS: 71045; 87426; 87804; 93005; 94760; 96372; 99285; J1885; J7512; J7613; J7644; Q0092; 94640; 99291

== ENCOUNTER 2022-11-22 17:12 | Emergency (ER) | payer OTHER ==
[~2022-11-22] VITALS: Ht 167.6 cm; Wt 93.0 kg
[~2022-11-22 17:12] MED LIST changes: +ALBU0.0912 IH; +FLUT1BLS15 IH; +PRED20TA5 PO
[2022-11-22 17:19] VITALS: BP 141/85
--- NOTE | 2022-11-22 17:55 | NUR ---
62 Y/O FEMALE BIB SELF C/O FEELING LIKE SOMETHING IS STUCK IN HER THROAT, PER PT SHE ATE A [facility] AT 1100H TODAY AND THAT SHE BELIEVES THAT A SEED IN STUCK. SPEAKING IN FULL SENTENCES, ABLE TO SWALLOW FLUIDS W/O DIFFICULTY, SATTING 99% RA, NO HOARSENESS NOTED ALLERGY: PCN PMH: HTN, ASTHMA, HDL
--- NOTE | 2022-11-22 18:03 | NUR ---
PT WC ASSISTED TO XRAY
[2022-11-22 20:05] VITALS: BP 141/85
--- NOTE | 2022-11-22 20:05 | NUR ---
Patient discharged. Written and verbal after care instructions given and explained. Patient verbalized understanding. Ambulatory with steady gait. ID band removed. All questions addressed prior to discharge. Advised to follow up with PMD.
== END 2022-11-22 20:05 | disposition home or self-care (01) ==
LOC: MED 17:12
DX: S27.818A Other injury of esophagus (thoracic part), initial encounter (principal); J45.909 Unspecified asthma, uncomplicated; I10 Essential (primary) hypertension; E11.9 Type 2 diabetes mellitus without complications; Z79.899 Other long term (current) drug therapy; Z79.1 Long term (current) use of non-steroidal anti-inflammatories (NSAID); Z79.2 Long term (current) use of antibiotics; Z88.0 Allergy status to penicillin; X58.XXXA Exposure to other specified factors, initial encounter; Y92.89 Other specified places as the place of occurrence of the external cause; Y93.89 Activity, other specified; Y99.8 Other external cause status
CPT/HCPCS: 70360; 99283

== ENCOUNTER 2023-02-19 10:34 | Emergency (ER) | payer OTHER ==
[~2023-02-19] VITALS: Ht 165.1 cm; Wt 89.4 kg
[2023-02-19 10:43] VITALS: BP 119/88
--- NOTE | 2023-02-19 10:43 | NUR ---
URINE SPECIMEN CUP GIVEN
--- NOTE | 2023-02-19 10:43 | NUR ---
PT AMBULATED TO BED 05
[2023-02-19] MEDS ORDERED: KETOROLAC 60 MG/2 ML VIAL IM ONE (11:15)
[2023-02-19] MEDS ORDERED: CARI350T PO (11:16)
[2023-02-19] MEDS ORDERED: TRAM-748 PO (11:16)
[2023-02-19] MEDS ORDERED: NAPR-1704 PO (11:16)
--- NOTE | 2023-02-19 11:35 | NUR ---
Patient discharged with v/s stable. Written and verbal after care instructions given and explained. Patient alert, oriented and verbalized understanding of instructions. Ambulatory with to home. All questions addressed prior to discharge. ID band removed. Patient advised to follow up with PMD. Rx of NAPROSYN, SOMA ULTRAM given. Patient educated on indication of medication including possible reaction and side effects. Opportunity to ask questions provided and answered.
[2023-02-19 12:08] LABS: APPEARANCE,URINE CLEAR (CLEAR); BILIRUBIN,URINE NEGATIVE (NEGATIVE); BLOOD, URINE NEGATIVE (NEGATIVE); COLOR,URINE YELLOW (YELLOW); LEUKOCYTE ESTERASE ,URINE NEGATIVE (NEGATIVE); NITRITE, URINE NEGATIVE (NEGATIVE); UGLUCOSE NEGATIVE (NEGATIVE)
== END 2023-02-19 11:34 | disposition home or self-care (01) ==
LOC: MED 10:34
DX: M54.50 Low back pain, unspecified (principal); J45.909 Unspecified asthma, uncomplicated; E11.9 Type 2 diabetes mellitus without complications; I10 Essential (primary) hypertension; Z79.899 Other long term (current) drug therapy; Z79.1 Long term (current) use of non-steroidal anti-inflammatories (NSAID); Z79.2 Long term (current) use of antibiotics; Z88.0 Allergy status to penicillin
CPT/HCPCS: 81003; 96372; 99283; J1885

== ENCOUNTER 2023-05-26 09:52 | Emergency (ER) | payer OTHER ==
[~2023-05-26] VITALS: Ht 167.6 cm; Wt 83.0 kg
[~2023-05-26 09:52] MED LIST changes: +CARI350T PO; +NAPR-1704 PO; +TRAM-748 PO
[2023-05-26 10:27] VITALS: BP 101/50; PULSE 111; RESP 18; TEMP 97.1; O2SAT 97
[2023-05-26] MEDS ORDERED: MORPHINE SULFATE 4 MG/ML SYR IM ONE (13:15)
[2023-05-26] MEDS ORDERED: IBUP-2213 PO (13:20)
[2023-05-26] MEDS ORDERED: HYDR-5191 PO (13:20)
[2023-05-26 13:56] VITALS: BP 119/71; PULSE 75; RESP 20; TEMP 98.2; O2SAT 98
== END 2023-05-26 13:56 | disposition home or self-care (01) ==
LOC: MED 09:52
DX: M54.50 Low back pain, unspecified (principal); R10.31 Right lower quadrant pain; M79.651 Pain in right thigh; J45.909 Unspecified asthma, uncomplicated; E11.9 Type 2 diabetes mellitus without complications; I10 Essential (primary) hypertension; E78.00 Pure hypercholesterolemia, unspecified; F41.9 Anxiety disorder, unspecified; Z90.49 Acquired absence of other specified parts of digestive tract; Z90.710 Acquired absence of both cervix and uterus; Z98.890 Other specified postprocedural states; Z79.899 Other long term (current) drug therapy; Z79.1 Long term (current) use of non-steroidal anti-inflammatories (NSAID); Z79.2 Long term (current) use of antibiotics; Z88.0 Allergy status to penicillin
CPT/HCPCS: 81002; 96372; 99283; J2270